=== PATIENT | female | born 1950 | race Two or more races ===

== ENCOUNTER 2020-10-29 13:48 | Inpatient (IN) ==
[2020-10-29] MEDS ORDERED: CARDIZEM INJ 50 MG VIAL ONE (14:23)
[2020-10-29] MEDS ORDERED: CARDIZEM INJ 50 MG VIAL IVP ONE ×2 (14:30→15:00)
[2020-10-29] MEDS ORDERED: CARDIZEM INJ 125 MG VIAL 125 MG in NS 100 ML IV 100 ML IV PRN (14:35)
[2020-10-29] MEDS: CARDIZEM INJ 125 MG VIAL 125 MG in NS 100 ML IV 100 ML IV PRN ×3 (14:38→22:30)
[2020-10-29 14:47] VITALS: BMI 37.4
[2020-10-29 14:52] LABS: BASOPHILS % (AUTO) 0.2 % (0.2-1.0); EOSINOPHILS % (AUTO) 0.4 % (0.9-2.9); HEMATOCRIT 42.1 % (36.0-47.0); HEMOGLOBIN 14.3 g/dL (12.0-16.0); LYMPHOCYTES # (AUTO) 1.8 X10^3/uL (1.3-2.9); LYMPHOCYTES % (AUTO) 18.3 % (21.0-51.0); MEAN CORPUSCULAR HEMOGLOBIN 30.5 pg (27.0-34.0); MEAN CORPUSCULAR HGB CONC 33.8 g/dL (33.0-35.0); MEAN PLATELET VOLUME 8.5 fL (7.4-11.0); MONOCYTES # (AUTO) 0.7 x10^3/uL (0.3-0.8); MONOCYTES % (AUTO) 7.2 % (0.0-13.0); NEUTROPHILS # (AUTO) 7.2 x10^3/uL (2.2-4.8); NEUTROPHILS % (AUTO) 73.9 % (42.0-75.0); PLATELET COUNT 279 X10^3/uL (150.0-450.0); RED BLOOD COUNT 4.68 X10^6/uL (3.5-5.4); RED CELL DISTRIBUTION WIDTH 14.4 % (11.6-16.5); WHITE BLOOD COUNT 9.8 X10^3/uL (3.6-10.0)
--- NOTE | 2020-10-29 15:01 | RAD ---
HISTORYChest pain, shortness of breathSTUDYChest AP portableCOMPARISONNoneFINDINGSThe heart is within normal limits in size. The andrew are normal. The lung costa are clear. No pleural effusions are identified. Bony thorax is unremarkable.IMPRESSIONNo significant abnormality identifiedElectronically signed by: ORALIA STEPHENS (Oct 29, 2020 14:58:54)
[2020-10-29 15:05] LABS: BLOOD UREA NITROGEN 23 mg/dL (7-18); CALCIUM 8.8 mg/dL (8.5-10.1); CARBON DIOXIDE 28.6 mmol/L (21-32); CHLORIDE 108 mmol/L (98-107); CREATININE 0.84 mg/dL (0.55-1.02); SODIUM 143 mmol/L (136-145); TROPONIN I < 0.02 ng/mL (0-1.5); eGFR NON BLACK RACES > 60 (>60)
--- NOTE | 2020-10-29 15:08 | DR.CP ---
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 Mancini. Noted to have tachyarrhythmia today in his office. Patient denies any chest pain, sob, or palpitations. Notes that she just returned from [place] yesterday. Notes that she stopped taking her thyroid medication a few weeks ago as well. Complaint Chief Complaint:: pt has since october 03 developed an increased hr with shortness of breath and tiredness. recently returned as of yesterday from visiting family in [place]. she has had both covid injections. Self Treatment fo Chief Complaint: she had stopped her thyroid meds after the 03 of october thinking that was the cause of her problems. she was to be tested on tsh and restarted. COVID-19 Coronavirus risk:travel/contact w/high risk person: No Has patient experienced Coronavirus symptoms: No Source History Provided: Patient Mode of Arrival Mode of Arrival: Ambulatory Timing Onset of Chief Complaint: 10/29/20 PMH PMH Past Medical History: Yes Past Medical History: Arthritis and Hypothyroidism Past Surgical History: Yes Surgical History: Cholecystectomy, Joint Replacement and Ortho Surgery Family History History of Family Medical Conditions: No Social History Does any household member use tobacco: No Alcohol Use: None Do you use any recreational Drugs:: No Lives With: Family Lives Where: Home Travel Risk Coronavirus risk:travel/contact w/high risk person: No Has patient experienced Coronavirus symptoms: No Infectious screening In the last 2 months have you had wt loss of >10#?: NO Have you had fever, night sweats or hemotysis?: No Have you traveled outside the country in the last 6 months?: No Isolation: Standard ROS Review of Systems Constitutional: See HPI Respiratoy: See HPI Cardiovascular: See HPI All Other Systems: Reviewed and Negative PE Vitals Vitals: Temperature 98.4 F Pulse Rate 130 Respiratory Rate 22 Blood Pressure 123/56 O2 Sat by Pulse Oximetry 99 General Limitations: No Limitations General Appearance: Alert and In No Apparent Distress Head Head Exam: Normal Inspection, Atraumatic and Normocephalic Eyes Eye exam: Normal Appearance and EOMI ENT ENT Exam: Normal Exam Chest Chest Inspection: Normal Inspection and Symmetric Chest Wall Rise Respiratory Respiratory Exam: Normal Lung Sounds Bilat Respiratory Exam: Bilateral: Clear to Auscultation Cardiovascular Cardiovascular Exam: Normal Rhythm and Tachycardia Abdominal Exam Abdominal Exam: Normal Inspection, Normal Bowel Sounds and Soft Extremities Extremities Exam: Normal Inspection Neurologic Neurological Exam: Alert and Oriented X3 Psychiatric Psychiatric Exam: Normal Affect and Normal Mood Skin Skin Exam: Warm, Dry and Intact COURSE Reevaluation 1st: Unchanged (patient given diltiazem 10 mg bolus x 2 and started on cardizem gtt without significant improvement. Dr. Mancini gives orders for digoxin and requests patient admission and he suman see patient in consultation. ) Consultation Consultation Comments: Spoke with Dr. Foster who accepts patient for admission. [facility] Labs Reviewed Laboratory Results Reviewed?: Yes Result Diagrams: 10/29/20 14:10 10/29/20 14:10 Laboratory: WBC 9.8 X10^3/uL (3.6-10.0) 10/29/20 14:10 RBC 4.68 X10^6/uL (3.5-5.4) 10/29/20 14:10 Hgb 14.3 g/dL (12.0-16.0) 10/29/20 14:10 Hct 42.1 % (36.0-47.0) 10/29/20 14:10 MCV 90.0 fL (80.0-100.0) 10/29/20 14:10 MCH 30.5 pg (27.0-34.0) 10/29/20 14:10 MCHC 33.8 g/dL (33.0-35.0) 10/29/20 14:10 RDW 14.4 % (11.6-16.5) 10/29/20 14:10 Plt Count 279 X10^3/uL (150.0-450.0) 10/29/20 14:10 MPV 8.5 fL (7.4-11.0) 10/29/20 14:10 Neut % (Auto) 73.9 % (42.0-75.0) 10/29/20 14:10 Lymph % (Auto) 18.3 % (21.0-51.0) L 10/29/20 14:10 [place] % (Auto) 7.2 % (0.0-13.0) 10/29/20 14:10 Eos % (Auto) 0.4 % (0.9-2.9) L 10/29/20 14:10 Baso % (Auto) 0.2 % (0.2-1.0) 10/29/20 14:10 Neut # (Auto) 7.2 x10^3/uL (2.2-4.8) H 10/29/20 14:10 Lymph # (Auto) 1.8 X10^3/uL (1.3-2.9) 10/29/20 14:10 [place] # (Auto) 0.7 x10^3/uL (0.3-0.8) 10/29/20 14:10 Eos # (Auto) 0.0 x10^3/uL (0.0-0.2) 10/29/20 14:10 Baso # (Auto) 0.0 X10^3/uL (0.0-0.1) 10/29/20 14:10 Absolute Nucleated RBC 0.0 /100WBC 10/29/20 14:10 PT 13.1 SECONDS (11.8-14.3) 10/29/20 14:10 INR Target Range - 10/29/20 14:10 INR 1.05 (0.8-1.3) 10/29/20 14:10 APTT 27.9 SECONDS (22.9-36.5) 10/29/20 14:10 PTT Comment - 10/29/20 14:10 D-Dimer 1.21 ug/ml (0.0-0.57) H* 10/29/20 14:10 Sodium 143 mmol/L (136-145) 10/29/20 14:10 Corrected Sodium TNP 10/29/20 14:10 Potassium 3.8 mmol/L (3.5-5.1) 10/29/20 14:10 Chloride 108 mmol/L (98-107) H 10/29/20 14:10 Carbon Dioxide 28.6 mmol/L (21-32) 10/29/20 14:10 BUN 23 mg/dL (7-18) H 10/29/20 14:10 Creatinine 0.84 mg/dL (0.55-1.02) 10/29/20 14:10 Est GFR (MDRD) Af Amer > 60 (>60) 10/29/20 14:10 Est GFR (MDRD) Non-Af > 60 (>60) 10/29/20 14:10 Glucose 106 mg/dL (65-99) H 10/29/20 14:10 Calcium 8.8 mg/dL (8.5-10.1) 10/29/20 14:10 Corrected Calcium TNP 10/29/20 14:10 Magnesium 2.0 mg/dL (1.7-2.9) 10/29/20 14:10 Total Bilirubin 0.90 mg/dL (0.2-1.0) 10/29/20 14:10 AST 9 Units/L (15-37) L 10/29/20 14:10 ALT 32 Units/L (12-78) 10/29/20 14:10 Alkaline Phosphatase 60 Units/L (46-116) 10/29/20 14:10 Creatine Kinase 40 Units/L (26-192) 10/29/20 14:10 CK-MB (CK-2) < 1.0 ng/mL (0-4.0) 10/29/20 14:10 CK/CKMB % Calc 2.5 % (<4) 10/29/20 14:10 Troponin I < 0.02 ng/mL (0-1.5) 10/29/20 14:10 Total Protein 6.7 g/dL (6.4-8.2) 10/29/20 14:10 Albumin 3.5 g/dL (3.4-5.0) 10/29/20 14:10 Globulin 3.2 g/dL (2.5-4.5) 10/29/20 14:10 Albumin/Globulin Ratio 1.1 Ratio (1.1-2.1) 10/29/20 14:10 TSH 3rd Generation 0.500 uIU/mL (0.358-3.74) 10/29/20 14:10 SARS CoV-2 RNA Rapid RIC Negative (NEGATIVE) 10/29/20 16:13 XRAY X-ray Results: HISTORY DEVELOPED INCREASED HR WITH SOB/ TIREDNESS, RECENTLY OF YESTERDAY VISITING FAMILY IN [place]. SHE HAS HAD BOTH COVID INJECTIONS STUDY CTA CHEST COMPARISON Chest radiograph from 10/29/2020 TECHNIQUE Multiple axial images of the chest were obtained from the thoracic inlet to the upper abdomen after the administration of IV contrast. 3D reconstructions ut ilizing axial MIPS imaging was performed and reviewed. Dose reduction techniques including Automated Exposure Control (AEC) and adjustment of mA and kV were utilized. FINDINGS Pulmonary Arteries:No central or segmental filling defect within the pulmonary arteries. Thoracic Aorta:The thoracic aorta is normal in its contour without evidence for aneurysmal dilatation. Heart: No significant abnormality. Lungs/Pleura: There is volume loss in the lingula and left lower lobe. No suspicious airspace consolidation. No pleural effusion or pneumothorax. Lymph nodes: No significant thoracic lymphadenopathy. Other: None Upper abdomen: Visualized portions of the upper abdomen are unremarkable. Osseous Structures: No acute osseous findings. IMPRESSION No acute findings in the chest. No evidence of pulmonary thromboembolism. Electronically signed by: Ji Yap (Oct 29, 2020 16:52:01) HISTORY Chest pain, shortness of breath STUDY Chest AP portable COMPARISON None FINDINGS The heart is within normal limits in size. The andrew are normal. The lung costa are clear. No pleural effusions are identified. Bony thorax is unremarkable. IMPRESSION No significant abnormality identified Electronically signed by: ORALIA STEPHENS (Oct 29, 2020 14:58:54) Opioid Opioid Risk Tool Age (Edward box if 16-45): No History of Preadolescent Sexual Abuse: No Total: 0 Total Score Risk Category: Low Risk Copyright: Maulik VELASQUEZ predicting aberrant behaviors Diagnosis Discharge Problem: Atrial flutter, Elevated d-dimer
[2020-10-29 15:09] LABS: ALANINE AMINOTRANSFERASE 32 Units/L (12-78); ALBUMIN 3.5 g/dL (3.4-5.0); ALKALINE PHOSPHATASE 60 Units/L (46-116); ASPARTATE AMINO TRANSFERASE 9 Units/L (15-37); CKMB % 2.5 % (<4); CREATINE KINASE 40 Units/L (26-192); CREATINE KINASE MB < 1.0 ng/mL (0-4.0); TOTAL PROTEIN 6.7 g/dL (6.4-8.2)
[2020-10-29] MEDS ORDERED: LANOXIN INJ IVP ONE ×2 (15:36→20:00)
[2020-10-29] MEDS ORDERED: NS 1000 ML 1,000 ML IV ONE (15:40)
[2020-10-29] MEDS ORDERED: LANOXIN INJ ONE (15:42)
[2020-10-29] MEDS ORDERED: NS 1000 ML 1,000 ML ONE (15:45)
[2020-10-29] MEDS ORDERED: ELIQUIS PO STA (16:28)
[2020-10-29] MEDS ORDERED: ELIQUIS ONE (16:38)
--- NOTE | 2020-10-29 16:53 | CT ---
HISTORYDEVELOPED INCREASED HR WITH SOB/ TIREDNESS, RECENTLY OF YESTERDAY VISITING FAMILY IN [place]. SHE HAS HAD BOTH [facility] CHESTCOMPARISONChest radiograph from 10/29/2020TECHNIQUEMultiple axial images of the chest were obtained from the thoracic inlet to the upper abdomen after the administration of IV contrast. 3D reconstructions utilizing axial MIPS imaging was performed and reviewed. Dose reduction techniques including Automated Exposure Control (AEC) and adjustment of mA and kV were utilized.FINDINGSPulmonary Arteries:No central or segmental filling defect within the pulmonary arteries.Thoracic Aorta:The thoracic aorta is normal in its contour without evidence for aneurysmal dilatation.Heart: No significant abnormality.Lungs/Pleura: There is volume loss in the lingula and left lower lobe. No suspicious airspace consolidation. No pleural effusion or pneumothorax.Lymph nodes: No significant thoracic lymphadenopathy.Other: NoneUpper abdomen: Visualized portions of the upper abdomen are unremarkable.Osseous Structures: No acute osseous findings.IMPRESSIONNo acute findings in the chest. No evidence of pulmonary thromboembolism.Electronically signed by: Ji Yap (Oct 29, 2020 16:52:01)
[2020-10-30] MEDS: CARDIZEM INJ 125 MG VIAL 125 MG in NS 100 ML IV 100 ML IV PRN (07:53)
[2020-10-30 08:11] LABS: BASOPHILS % (AUTO) 0.6 % (0.2-1.0); EOSINOPHILS # (AUTO) 0.1 x10^3/uL (0.0-0.2); EOSINOPHILS % (AUTO) 0.8 % (0.9-2.9); HEMOGLOBIN 13.3 g/dL (12.0-16.0); LYMPHOCYTES # (AUTO) 1.4 X10^3/uL (1.3-2.9); LYMPHOCYTES % (AUTO) 17.5 % (21.0-51.0); MEAN CORPUSCULAR HEMOGLOBIN 30.2 pg (27.0-34.0); MEAN CORPUSCULAR HGB CONC 33.2 g/dL (33.0-35.0); MEAN CORPUSCULAR VOLUME 90.8 fL (80.0-100.0); MEAN PLATELET VOLUME 8.6 fL (7.4-11.0); MONOCYTES # (AUTO) 0.7 x10^3/uL (0.3-0.8); MONOCYTES % (AUTO) 8.7 % (0.0-13.0); NEUTROPHILS # (AUTO) 5.9 x10^3/uL (2.2-4.8); NEUTROPHILS % (AUTO) 72.4 % (42.0-75.0); PLATELET COUNT 224 X10^3/uL (150.0-450.0); RED BLOOD COUNT 4.41 X10^6/uL (3.5-5.4); RED CELL DISTRIBUTION WIDTH 14.1 % (11.6-16.5); WHITE BLOOD COUNT 8.1 X10^3/uL (3.6-10.0)
[2020-10-30 08:26] LABS: ALANINE AMINOTRANSFERASE 26 Units/L (12-78); ALBUMIN 2.9 g/dL (3.4-5.0); ALKALINE PHOSPHATASE 55 Units/L (46-116); ASPARTATE AMINO TRANSFERASE 6 Units/L (15-37); BLOOD UREA NITROGEN 21 mg/dL (7-18); CALCIUM 8.4 mg/dL (8.5-10.1); CARBON DIOXIDE 28.8 mmol/L (21-32); CHLORIDE 110 mmol/L (98-107); COR CA(FOR HYPOALB) 9.3 mg/dL (8.5-10.1); COR NA(FOR HYPERGLY) 143 mmol/L (136-145); CREATININE 0.68 mg/dL (0.55-1.02); MAGNESIUM 2.2 mg/dL (1.7-2.9); SODIUM 143 mmol/L (136-145); TOTAL PROTEIN 5.9 g/dL (6.4-8.2); eGFR NON BLACK RACES > 60 (>60)
[2020-10-30] MEDS ORDERED: LANOXIN INJ IVP ONE (09:49)
[2020-10-30] MEDS: ELIQUIS PO SCH ×2 (10:10→20:51)
[2020-10-30] MEDS: CARDIZEM SR 90 MG 12-HR PO SCH ×2 (10:50→20:59)
--- NOTE | 2020-10-30 11:51 | DR.H&P ---
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 Pt only reports having "burning" sensation on chest and some palpitations, but no other symptoms. In the ED, patient was noted tachyarrhythmia appearing to be atrial flutter, she was given diltiazem bolus of 10mg x2, Digoxin 500mcg x1, and started on diltiazem gtt. She also required another Digoxin 250mcg dose later in the evening. Labs/imaging: Wbc 8.1, Hgb 13.3, Plt 224, Na 143, K 4.4, Creatinine 0.68, Glucose 117, Magnesium 2.2, AST 6, ALT 26, ALKP 55, TSH 0.50, D-dimer 1.21 , CXR: No significant abnormality identified, CTA chest: No acute findings in the chest. No evidence of pulmonary thromboembolism. This morning patient is resting comfortably in bed. Repeat Ekg this morning revealing atrial flutter 4:1. She appears to be rate controlled on diltiazem gtt at 15mg/hour. Titrate and wean per protocol. Will consult cardiology to evaluate patient and provide recommendations. Continue Eliquis. Continue to monitor and follow up labs/imaging in the morning. Time spent on documentation, reviewing labs/imaging, and clinical assessment/decision making greater than 75 minutes. 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, Hysterectomy and Mastectomy Social History Does patient currently use any type of tobacco product: No Have you used tobacco products in the last 12 months: No Type of Tobacco Use: None Does any household member use tobacco: No Alcohol Use: None Medications Home Medications: No Known Allergies Allergy (Verified 10/29/20 14:24) CONTINUE taking the following medications amlodipine 5 mg PO DAILY 10/29/20 [History] famotidine 40 mg PO HS 10/29/20 [History] hydrocodone-acetaminophen 1 tab PO DAILY PRN 10/29/20 [History] levothyroxine 100 mcg PO DAILY 10/29/20 [History] zolpidem [Ambien] 10 mg PO HS 10/29/20 [History] Labs Result Diagrams: 10/30/20 06:57 10/30/20 06:57 Labs: Laboratory WBC 8.1 X10^3/uL (3.6-10.0) 10/30/20 06:57 RBC 4.41 X10^6/uL (3.5-5.4) 10/30/20 06:57 Hgb 13.3 g/dL (12.0-16.0) 10/30/20 06:57 Hct 40.0 % (36.0-47.0) 10/30/20 06:57 MCV 90.8 fL (80.0-100.0) 10/30/20 06:57 MCH 30.2 pg (27.0-34.0) 10/30/20 06:57 MCHC 33.2 g/dL (33.0-35.0) 10/30/20 06:57 RDW 14.1 % (11.6-16.5) 10/30/20 06:57 Plt Count 224 X10^3/uL (150.0-450.0) 10/30/20 06:57 MPV 8.6 fL (7.4-11.0) 10/30/20 06:57 Neut % (Auto) 72.4 % (42.0-75.0) 10/30/20 06:57 Lymph % (Auto) 17.5 % (21.0-51.0) L 10/30/20 06:57 [place] % (Auto) 8.7 % (0.0-13.0) 10/30/20 06:57 Eos % (Auto) 0.8 % (0.9-2.9) L 10/30/20 06:57 Baso % (Auto) 0.6 % (0.2-1.0) 10/30/20 06:57 Neut # (Auto) 5.9 x10^3/uL (2.2-4.8) H 10/30/20 06:57 Lymph # (Auto) 1.4 X10^3/uL (1.3-2.9) 10/30/20 06:57 [place] # (Auto) 0.7 x10^3/uL (0.3-0.8) 10/30/20 06:57 Eos # (Auto) 0.1 x10^3/uL (0.0-0.2) 10/30/20 06:57 Baso # (Auto) 0.0 X10^3/uL (0.0-0.1) 10/30/20 06:57 Absolute Nucleated RBC 0.0 /100WBC 10/30/20 06:57 PT 13.1 SECONDS (11.8-14.3) 10/29/20 14:10 INR Target Range - 10/29/20 14:10 INR 1.05 (0.8-1.3) 10/29/20 14:10 APTT 27.9 SECONDS (22.9-36.5) 10/29/20 14:10 PTT Comment - 10/29/20 14:10 D-Dimer 1.21 ug/ml (0.0-0.57) H* 10/29/20 14:10 Sodium 143 mmol/L (136-145) 10/30/20 06:57 Corrected Sodium 143 mmol/L (136-145) 10/30/20 06:57 Potassium 4.4 mmol/L (3.5-5.1) 10/30/20 06:57 Chloride 110 mmol/L (98-107) H 10/30/20 06:57 Carbon Dioxide 28.8 mmol/L (21-32) 10/30/20 06:57 BUN 21 mg/dL (7-18) H 10/30/20 06:57 Creatinine 0.68 mg/dL (0.55-1.02) 10/30/20 06:57 Est GFR (MDRD) Af Amer > 60 (>60) 10/30/20 06:57 Est GFR (MDRD) Non-Af > 60 (>60) 10/30/20 06:57 Glucose 117 mg/dL (65-99) H 10/30/20 06:57 Calcium 8.4 mg/dL (8.5-10.1) L 10/30/20 06:57 Corrected Calcium 9.3 mg/dL (8.5-10.1) 10/30/20 06:57 Magnesium 2.2 mg/dL (1.7-2.9) 10/30/20 06:57 Total Bilirubin 0.50 mg/dL (0.2-1.0) 10/30/20 06:57 AST 6 Units/L (15-37) L 10/30/20 06:57 ALT 26 Units/L (12-78) 10/30/20 06:57 Alkaline Phosphatase 55 Units/L (46-116) 10/30/20 06:57 Creatine Kinase 40 Units/L (26-192) 10/29/20 14:10 CK-MB (CK-2) < 1.0 ng/mL (0-4.0) 10/29/20 14:10 CK/CKMB % Calc 2.5 % (<4) 10/29/20 14:10 Troponin I < 0.02 ng/mL (0-1.5) 10/29/20 14:10 Total Protein 5.9 g/dL (6.4-8.2) L 10/30/20 06:57 Albumin 2.9 g/dL (3.4-5.0) L 10/30/20 06:57 Globulin 3.0 g/dL (2.5-4.5) 10/30/20 06:57 Albumin/Globulin Ratio 1.0 Ratio (1.1-2.1) L 10/30/20 06:57 TSH 3rd Generation 0.500 uIU/mL (0.358-3.74) 10/29/20 14:10 SARS CoV-2 RNA Rapid RIC Negative (NEGATIVE) 10/29/20 16:13 Review of Systems Constitutional: No Symptoms Reported Eyes: No Symptoms Reported ENT: No Symptoms Reported Respiratory: No Symptoms Reported Cardiovascular: Palpitations Gastrointestinal: No Symptoms Reported Genitourinary: No Symptoms Reported Musculoskeletal: No Symptoms Reported Skin: No Symptoms Reported Neurological: No Symptoms Reported Physical Exam Vital Signs: Temperature 98.2 F Pulse Rate [Right] 73 Pulse Rate 74 Respiratory Rate 40 Blood Pressure [Left Arm] 108/67 Blood Pressure 122/68 O2 Sat by Pulse Oximetry 95 Oriented: Normal Eyes: Normal Ear: Normal Nose: Normal Throat: Normal Respiratory: Clear Throughout Cardiovascular: Normal : Normal Auscultation: Bowel Sounds: Normal Palpation: Normal Tenderness: Normal Skin: Normal Musculoskeletal: Normal Psychiatric: Normal Mood Description: Calm and Appropriate Affect: Normal Speech Pattern: Clear and Appropriate Assessment/Plan (1) Atrial flutter: Qualifiers: Atrial flutter type: unspecified Qualified Code(s): I48.92 - Unspecified atrial flutter Status: Acute Plan: Cardizem gtt Cardiology consult, follow up recommendations. Review H&P Reviewed: Yes Patient was examined?: Yes
[2020-10-31] MEDS ORDERED: LANOXIN or DIGITEK PO SCH (09:00)
[2020-10-31] MEDS: CARDIZEM SR 90 MG 12-HR PO SCH (09:35)
[2020-10-31] MEDS: ELIQUIS PO SCH (09:35)
[2020-10-31 11:52] VITALS: BP 150/90
--- NOTE | 2020-10-31 12:32 | W.DIS.FURT ---
Summary of Discharge Discharge Summary of Date Date of Exam: 10/31/20 Admission Date Date of Admission: 10/30/20 Admission Diagnosis Patient Problems (Updated 10/30/20 @ 12:13 by Moose Almeida) Atrial flutter (Acute) I48.92 Elevated d-dimer (Acute) R79.89 Hospital Course: Pt is a 70 year old female past medical history of Hypothyroidism, HTN, Arthritis, and GERD admitted for new onset atrial flutter. Hospital course she was given digoxin and started on diltiazem gtt. She was able to be weaned off drip and rate controlled once started on PO cardizem and digoxin. Cardiology-Dr Mancini was consulted and recommended Cardizem ER 90mg BID, Digoxin 0.125mcg daily, and Eliquis 5mg BID. He will follow up with patient at outpatient clinic in 1 week with plan for nuclear stress test and possible LIBERTAD and cardioversion if patient does not convert on her own. Pt discharged in stable condition, instructed to follow up [facility] pcp in 1 week. Vital Signs: Vital Signs (72 hours) 10/29/20 14:12 10/29/20 14:15 10/29/20 14:27 Temperature Pulse Rate 150 H 150 H 146 H Pulse Rate [Right] Respiratory Rate 38 H 34 H 37 H Blood Pressure 110/84 Blood Pressure [Left Arm] O2 Sat by Pulse Oximetry 98 98 98 10/29/20 14:30 10/29/20 14:40 10/29/20 14:45 Temperature 98.4 F Pulse Rate 148 H 150 H 146 H Pulse Rate [Right] Respiratory Rate 42 H 20 17 Blood Pressure 114/83 109/62 121/76 Blood Pressure [Left Arm] O2 Sat by Pulse Oximetry 99 100 98 10/29/20 15:00 10/29/20 15:15 10/29/20 15:24 Temperature Pulse Rate 149 H 149 H 142 H Pulse Rate [Right] Respiratory Rate 34 H 38 H 18 Blood Pressure 106/70 118/74 Blood Pressure [Left Arm] O2 Sat by Pulse Oximetry 98 97 98 10/29/20 15:30 10/29/20 15:45 10/29/20 15:46 Temperature Pulse Rate 140 H 137 H 137 H Pulse Rate [Right] Respiratory Rate 20 35 H 22 Blood Pressure 109/70 114/65 Blood Pressure [Left Arm] O2 Sat by Pulse Oximetry 98 98 98 10/29/20 16:00 10/29/20 16:02 10/29/20 16:15 Temperature Pulse Rate 133 H 140 H 135 H Pulse Rate [Right] Respiratory Rate 18 Blood Pressure 117/75 116/89 Blood Pressure [Left Arm] O2 Sat by Pulse Oximetry 98 98 10/29/20 16:33 10/29/20 16:45 10/29/20 17:00 Temperature Pulse Rate 131 H 130 H 132 H Pulse Rate [Right] Respiratory Rate 22 22 Blood Pressure 127/69 123/56 Blood Pressure [Left Arm] O2 Sat by Pulse Oximetry 99 100 10/29/20 17:02 10/29/20 17:20 10/29/20 17:30 Temperature 98.8 F Pulse Rate 131 H Pulse Rate [Right] 135 H Respiratory Rate 21 18 Blood Pressure 113/83 Blood Pressure [Left Arm] 142/95 O2 Sat by Pulse Oximetry 99 97 96 10/29/20 18:00 10/29/20 19:00 10/29/20 20:00 Temperature 98 F Pulse Rate Pulse Rate [Right] 142 H 115 H 93 H Respiratory Rate 23 27 H 26 H Blood Pressure Blood Pressure [Left Arm] 139/88 122/70 128/94 O2 Sat by Pulse Oximetry 96 95 95 10/29/20 20:16 10/29/20 21:00 10/29/20 22:00 Temperature Pulse Rate 82 Pulse Rate [Right] 81 93 H Respiratory Rate 22 31 H Blood Pressure Blood Pressure [Left Arm] 137/67 131/78 O2 Sat by Pulse Oximetry 95 97 10/29/20 22:30 10/29/20 22:52 10/29/20 23:00 Temperature Pulse Rate 84 84 74 Pulse Rate [Right] 74 Respiratory Rate 26 H 31 H 31 H Blood Pressure Blood Pressure [Left Arm] 119/61 O2 Sat by Pulse Oximetry 94 L 95 10/29/20 23:01 10/29/20 23:15 10/29/20 23:30 Temperature Pulse Rate 74 73 74 Pulse Rate [Right] Respiratory Rate 32 H 39 H 23 Blood Pressure 119/61 Blood Pressure [Left Arm] O2 Sat by Pulse Oximetry 94 L 95 93 L 10/29/20 23:45 10/30/20 00:00 10/30/20 00:15 Temperature 98.2 F Pulse Rate 74 74 74 Pulse Rate [Right] 74 Respiratory Rate 23 25 H 23 Blood Pressure 115/67 Blood Pressure [Left Arm] 115/67 O2 Sat by Pulse Oximetry 92 L 92 L 91 L 10/30/20 00:30 10/30/20 00:45 10/30/20 01:00 Temperature Pulse Rate 74 74 74 Pulse Rate [Right] 92 H Respiratory Rate 23 22 20 Blood Pressure 122/68 Blood Pressure [Left Arm] 122/68 O2 Sat by Pulse Oximetry 91 L 91 L 90 L 10/30/20 01:15 10/30/20 01:30 10/30/20 01:45 Temperature Pulse Rate 74 73 73 Pulse Rate [Right] Respiratory Rate 25 H 21 22 Blood Pressure Blood Pressure [Left Arm] O2 Sat by Pulse Oximetry 90 L 93 L 92 L 10/30/20 02:00 10/30/20 02:15 10/30/20 02:30 Temperature Pulse Rate 74 74 73 Pulse Rate [Right] 74 Respiratory Rate 22 22 21 Blood Pressure 120/70 Blood Pressure [Left Arm] 138/81 O2 Sat by Pulse Oximetry 92 L 91 L 91 L 10/30/20 02:45 10/30/20 03:00 10/30/20 03:15 Temperature Pulse Rate 73 74 74 Pulse Rate [Right] 74 Respiratory Rate 22 19 21 Blood Pressure 138/81 Blood Pressure [Left Arm] 124/71 O2 Sat by Pulse Oximetry 92 L 93 L 92 L 10/30/20 03:30 10/30/20 03:45 10/30/20 04:00 Temperature 98.2 F Pulse Rate 73 78 76 Pulse Rate [Right] 74 Respiratory Rate 20 21 36 H Blood Pressure Blood Pressure [Left Arm] 124/71 O2 Sat by Pulse Oximetry 92 L 90 L 90 L 10/30/20 04:09 10/30/20 04:15 10/30/20 04:30 Temperature Pulse Rate 73 73 72 Pulse Rate [Right] Respiratory Rate 20 23 19 Blood Pressure 124/71 Blood Pressure [Left Arm] O2 Sat by Pulse Oximetry 95 93 L 92 L 10/30/20 04:45 10/30/20 05:00 10/30/20 05:15 Temperature Pulse Rate 72 72 72 Pulse Rate [Right] Respiratory Rate 19 19 19 Blood Pressure Blood Pressure [Left Arm] O2 Sat by Pulse Oximetry 92 L 93 L 95 10/30/20 05:30 10/30/20 05:45 10/30/20 06:00 Temperature Pulse Rate 73 73 73 Pulse Rate [Right] 73 Respiratory Rate 20 18 20 Blood Pressure Blood Pressure [Left Arm] 108/67 O2 Sat by Pulse Oximetry 94 L 93 L 93 L 10/30/20 06:15 10/30/20 06:17 10/30/20 06:30 Temperature Pulse Rate 73 74 73 Pulse Rate [Right] Respiratory Rate 21 21 20 Blood Pressure 108/67 Blood Pressure [Left Arm] O2 Sat by Pulse Oximetry 91 L 96 95 10/30/20 06:45 10/30/20 07:00 10/30/20 07:14 Temperature Pulse Rate 73 74 74 Pulse Rate [Right] Respiratory Rate 24 30 H 28 H Blood Pressure 118/65 Blood Pressure [Left Arm] O2 Sat by Pulse Oximetry 94 L 95 95 10/30/20 07:15 10/30/20 07:30 10/30/20 07:45 Temperature 97.9 F Pulse Rate 74 73 72 Pulse Rate [Right] Respiratory Rate 35 H 34 H 41 H Blood Pressure Blood Pressure [Left Arm] O2 Sat by Pulse Oximetry 95 94 L 97 10/30/20 08:08 10/30/20 08:15 10/30/20 08:30 Temperature Pulse Rate 85 75 73 Pulse Rate [Right] Respiratory Rate 19 38 H 46 H Blood Pressure Blood Pressure [Left Arm] O2 Sat by Pulse Oximetry 96 97 10/30/20 08:43 10/30/20 08:45 10/30/20 09:00 Temperature Pulse Rate 74 73 73 Pulse Rate [Right] Respiratory Rate 35 H 29 H 33 H Blood Pressure 112/66 117/67 Blood Pressure [Left Arm] O2 Sat by Pulse Oximetry 96 94 L 96 10/30/20 09:15 10/30/20 09:30 10/30/20 09:45 Temperature Pulse Rate 74 74 73 Pulse Rate [Right] Respiratory Rate 47 H 33 H 42 H Blood Pressure Blood Pressure [Left Arm] O2 Sat by Pulse Oximetry 95 96 93 L 10/30/20 10:00 10/30/20 10:10 10/30/20 10:15 Temperature Pulse Rate 73 73 73 Pulse Rate [Right] Respiratory Rate 36 H 40 H Blood Pressure 122/68 Blood Pressure [Left Arm] O2 Sat by Pulse Oximetry 93 L 94 L 10/30/20 10:30 10/30/20 10:45 10/30/20 11:00 Temperature Pulse Rate 74 74 74 Pulse Rate [Right] Respiratory Rate 40 H 40 H 37 H Blood Pressure 124/75 Blood Pressure [Left Arm] O2 Sat by Pulse Oximetry 95 95 95 10/30/20 11:15 10/30/20 11:30 10/30/20 11:45 Temperature Pulse Rate 79 113 H 74 Pulse Rate [Right] Respiratory Rate 30 H 33 H 24 Blood Pressure Blood Pressure [Left Arm] O2 Sat by Pulse Oximetry 92 L 92 L 97 10/30/20 12:00 10/30/20 12:01 10/30/20 12:15 Temperature 97.7 F Pulse Rate 92 H 91 H 79 Pulse Rate [Right] Respiratory Rate 34 H 34 H 26 H Blood Pressure 129/79 Blood Pressure [Left Arm] O2 Sat by Pulse Oximetry 96 97 96 10/30/20 12:30 10/30/20 12:45 10/30/20 13:00 Temperature Pulse Rate 77 82 77 Pulse Rate [Right] Respiratory Rate 25 H 24 29 H Blood Pressure 125/65 Blood Pressure [Left Arm] O2 Sat by Pulse Oximetry 97 97 98 10/30/20 13:15 10/30/20 13:30 10/30/20 13:45 Temperature Pulse Rate 78 93 H 80 Pulse Rate [Right] Respiratory Rate 52 H 34 H 30 H Blood Pressure Blood Pressure [Left Arm] O2 Sat by Pulse Oximetry 97 96 98 10/30/20 14:00 10/30/20 14:15 10/30/20 14:30 Temperature Pulse Rate 77 93 H 75 Pulse Rate [Right] Respiratory Rate 25 H 34 H 26 H Blood Pressure 115/67 Blood Pressure [Left Arm] O2 Sat by Pulse Oximetry 96 96 96 10/30/20 14:46 10/30/20 15:00 10/30/20 15:15 Temperature Pulse Rate 75 74 76 Pulse Rate [Right] Respiratory Rate 26 H 25 H 26 H Blood Pressure 112/71 Blood Pressure [Left Arm] O2 Sat by Pulse Oximetry 97 97 96 10/30/20 15:30 10/30/20 15:45 10/30/20 16:02 Temperature Pulse Rate 75 88 Pulse Rate [Right] Respiratory Rate 25 H 29 H Blood Pressure Blood Pressure [Left Arm] O2 Sat by Pulse Oximetry 97 95 96 10/30/20 16:15 10/30/20 16:30 10/30/20 16:42 Temperature Pulse Rate 81 76 84 Pulse Rate [Right] Respiratory Rate 23 21 28 H Blood Pressure 119/72 Blood Pressure [Left Arm] O2 Sat by Pulse Oximetry 98 97 98 10/30/20 16:45 10/30/20 17:00 10/30/20 17:15 Temperature Pulse Rate 81 83 131 H Pulse Rate [Right] Respiratory Rate 29 H 32 H 31 H Blood Pressure 130/81 Blood Pressure [Left Arm] O2 Sat by Pulse Oximetry 98 97 97 10/30/20 17:30 10/30/20 17:45 10/30/20 18:00 Temperature Pulse Rate 128 H 100 H 129 H Pulse Rate [Right] Respiratory Rate 40 H 26 H 35 H Blood Pressure 131/89 Blood Pressure [Left Arm] O2 Sat by Pulse Oximetry 97 97 97 10/30/20 19:00 10/30/20 20:00 10/30/20 21:00 Temperature 97.9 F Pulse Rate 134 H 128 H 133 H Pulse Rate [Right] Respiratory Rate 27 H 29 H 31 H Blood Pressure 145/67 134/93 152/99 Blood Pressure [Left Arm] O2 Sat by Pulse Oximetry 96 97 97 10/30/20 21:15 10/30/20 21:30 10/30/20 21:45 Temperature Pulse Rate 129 H 133 H 137 H Pulse Rate [Right] Respiratory Rate 26 H 24 19 Blood Pressure Blood Pressure [Left Arm] O2 Sat by Pulse Oximetry 96 97 98 10/30/20 22:00 10/30/20 22:15 10/30/20 22:30 Temperature Pulse Rate 134 H 132 H 133 H Pulse Rate [Right] Respiratory Rate 32 H 35 H 44 H Blood Pressure 139/96 Blood Pressure [Left Arm] O2 Sat by Pulse Oximetry 97 97 97 10/30/20 22:49 10/30/20 23:00 10/30/20 23:15 Temperature Pulse Rate 149 H 143 H 132 H Pulse Rate [Right] Respiratory Rate 30 H 25 H 20 Blood Pressure 123/90 Blood Pressure [Left Arm] O2 Sat by Pulse Oximetry 96 97 10/30/20 23:30 10/30/20 23:45 10/31/20 00:00 Temperature 97.8 F Pulse Rate 132 H 129 H 100 H Pulse Rate [Right] Respiratory Rate 23 22 21 Blood Pressure 130/61 Blood Pressure [Left Arm] O2 Sat by Pulse Oximetry 97 94 L 97 10/31/20 00:15 10/31/20 00:30 10/31/20 00:45 Temperature Pulse Rate 114 H 100 H 92 H Pulse Rate [Right] Respiratory Rate 24 19 19 Blood Pressure Blood Pressure [Left Arm] O2 Sat by Pulse Oximetry 95 96 97 10/31/20 01:00 10/31/20 01:15 10/31/20 01:30 Temperature Pulse Rate 100 H 101 H 100 H Pulse Rate [Right] Respiratory Rate 20 20 21 Blood Pressure 132/64 Blood Pressure [Left Arm] O2 Sat by Pulse Oximetry 97 97 96 10/31/20 01:45 10/31/20 02:00 10/31/20 02:15 Temperature Pulse Rate 99 H 116 H 80 Pulse Rate [Right] Respiratory Rate 24 24 21 Blood Pressure 122/58 Blood Pressure [Left Arm] O2 Sat by Pulse Oximetry 95 97 96 10/31/20 02:30 10/31/20 02:45 10/31/20 03:00 Temperature Pulse Rate 77 136 H 78 Pulse Rate [Right] Respiratory Rate 19 54 H 20 Blood Pressure 131/67 Blood Pressure [Left Arm] O2 Sat by Pulse Oximetry 97 97 10/31/20 03:15 10/31/20 03:30 10/31/20 03:45 Temperature Pulse Rate 77 77 77 Pulse Rate [Right] Respiratory Rate 20 21 20 Blood Pressure Blood Pressure [Left Arm] O2 Sat by Pulse Oximetry 96 97 97 10/31/20 04:00 10/31/20 04:15 10/31/20 04:30 Temperature 97.7 F Pulse Rate 99 H 78 79 Pulse Rate [Right] Respiratory Rate 26 H 20 19 Blood Pressure 137/66 Blood Pressure [Left Arm] O2 Sat by Pulse Oximetry 96 97 96 10/31/20 04:45 10/31/20 05:00 10/31/20 05:15 Temperature Pulse Rate 97 H 105 H 98 H Pulse Rate [Right] Respiratory Rate 20 19 20 Blood Pressure 127/77 Blood Pressure [Left Arm] O2 Sat by Pulse Oximetry 96 98 98 10/31/20 05:30 10/31/20 05:45 10/31/20 06:00 Temperature Pulse Rate 81 80 81 Pulse Rate [Right] Respiratory Rate 21 21 19 Blood Pressure 124/72 Blood Pressure [Left Arm] O2 Sat by Pulse Oximetry 96 96 97 04/08/21 06:15 10/31/20 06:30 10/31/20 06:45 Temperature Pulse Rate 81 91 H 139 H Pulse Rate [Right] Respiratory Rate 21 21 25 H Blood Pressure Blood Pressure [Left Arm] O2 Sat by Pulse Oximetry 96 97 94 L 10/31/20 06:59 10/31/20 07:00 10/31/20 07:15 Temperature Pulse Rate 113 H 113 H 97 H Pulse Rate [Right] Respiratory Rate 20 19 19 Blood Pressure 132/77 Blood Pressure [Left Arm] O2 Sat by Pulse Oximetry 97 97 96 10/31/20 07:30 10/31/20 07:45 10/31/20 08:00 Temperature 98.3 F Pulse Rate 130 H 137 H 133 H Pulse Rate [Right] Respiratory Rate 32 H 41 H 26 H Blood Pressure 104/79 Blood Pressure [Left Arm] O2 Sat by Pulse Oximetry 94 L 96 97 10/31/20 08:15 10/31/20 08:31 10/31/20 08:45 Temperature Pulse Rate 128 H 149 H 139 H Pulse Rate [Right] Respiratory Rate 28 H 20 26 H Blood Pressure Blood Pressure [Left Arm] O2 Sat by Pulse Oximetry 97 94 L 98 10/31/20 09:00 10/31/20 09:15 10/31/20 09:30 Temperature Pulse Rate 132 H 134 H 128 H Pulse Rate [Right] Respiratory Rate 21 24 22 Blood Pressure 119/79 Blood Pressure [Left Arm] O2 Sat by Pulse Oximetry 97 97 97 10/31/20 09:45 10/31/20 10:00 10/31/20 10:15 Temperature Pulse Rate 134 H 132 H 141 H Pulse Rate [Right] Respiratory Rate 24 21 28 H Blood Pressure 150/90 Blood Pressure [Left Arm] O2 Sat by Pulse Oximetry 98 97 97 10/31/20 10:30 Temperature Pulse Rate 144 H Pulse Rate [Right] Respiratory Rate 45 H Blood Pressure Blood Pressure [Left Arm] O2 Sat by Pulse Oximetry 97 Labs: Laboratory Last Values WBC 8.1 X10^3/uL (3.6-10.0) 10/30/20 06:57 RBC 4.41 X10^6/uL (3.5-5.4) 10/30/20 06:57 Hgb 13.3 g/dL (12.0-16.0) 10/30/20 06:57 Hct 40.0 % (36.0-47.0) 10/30/20 06:57 MCV 90.8 fL (80.0-100.0) 10/30/20 06:57 MCH 30.2 pg (27.0-34.0) 10/30/20 06:57 MCHC 33.2 g/dL (33.0-35.0) 10/30/20 06:57 RDW 14.1 % (11.6-16.5) 10/30/20 06:57 Plt Count 224 X10^3/uL (150.0-450.0) 10/30/20 06:57 MPV 8.6 fL (7.4-11.0) 10/30/20 06:57 Neut % (Auto) 72.4 % (42.0-75.0) 10/30/20 06:57 Lymph % (Auto) 17.5 % (21.0-51.0) L 10/30/20 06:57 [place] % (Auto) 8.7 % (0.0-13.0) 10/30/20 06:57 Eos % (Auto) 0.8 % (0.9-2.9) L 10/30/20 06:57 Baso % (Auto) 0.6 % (0.2-1.0) 10/30/20 06:57 Neut # (Auto) 5.9 x10^3/uL (2.2-4.8) H 10/30/20 06:57 Lymph # (Auto) 1.4 X10^3/uL (1.3-2.9) 10/30/20 06:57 [place] # (Auto) 0.7 x10^3/uL (0.3-0.8) 10/30/20 06:57 Eos # (Auto) 0.1 x10^3/uL (0.0-0.2) 10/30/20 06:57 Baso # (Auto) 0.0 X10^3/uL (0.0-0.1) 10/30/20 06:57 Absolute Nucleated RBC 0.0 /100WBC 10/30/20 06:57 PT 13.1 SECONDS (11.8-14.3) 10/29/20 14:10 INR Target Range - 10/29/20 14:10 INR 1.05 (0.8-1.3) 10/29/20 14:10 APTT 27.9 SECONDS (22.9-36.5) 10/29/20 14:10 PTT Comment - 10/29/20 14:10 D-Dimer 1.21 ug/ml (0.0-0.57) H* 10/29/20 14:10 Sodium 143 mmol/L (136-145) 10/30/20 06:57 Corrected Sodium 143 mmol/L (136-145) 10/30/20 06:57 Potassium 4.4 mmol/L (3.5-5.1) 10/30/20 06:57 Chloride 110 mmol/L (98-107) H 10/30/20 06:57 Carbon Dioxide 28.8 mmol/L (21-32) 10/30/20 06:57 BUN 21 mg/dL (7-18) H 10/30/20 06:57 Creatinine 0.68 mg/dL (0.55-1.02) 10/30/20 06:57 Est GFR (MDRD) Af Amer > 60 (>60) 10/30/20 06:57 Est GFR (MDRD) Non-Af > 60 (>60) 10/30/20 06:57 Glucose 117 mg/dL (65-99) H 10/30/20 06:57 Calcium 8.4 mg/dL (8.5-10.1) L 10/30/20 06:57 Corrected Calcium 9.3 mg/dL (8.5-10.1) 10/30/20 06:57 Magnesium 2.2 mg/dL (1.7-2.9) 10/30/20 06:57 Total Bilirubin 0.50 mg/dL (0.2-1.0) 10/30/20 06:57 AST 6 Units/L (15-37) L 10/30/20 06:57 ALT 26 Units/L (12-78) 10/30/20 06:57 Alkaline Phosphatase 55 Units/L (46-116) 10/30/20 06:57 Creatine Kinase 40 Units/L (26-192) 10/29/20 14:10 CK-MB (CK-2) < 1.0 ng/mL (0-4.0) 10/29/20 14:10 CK/CKMB % Calc 2.5 % (<4) 10/29/20 14:10 Troponin I < 0.02 ng/mL (0-1.5) 10/29/20 14:10 Total Protein 5.9 g/dL (6.4-8.2) L 10/30/20 06:57 Albumin 2.9 g/dL (3.4-5.0) L 10/30/20 06:57 Globulin 3.0 g/dL (2.5-4.5) 10/30/20 06:57 Albumin/Globulin Ratio 1.0 Ratio (1.1-2.1) L 10/30/20 06:57 TSH 3rd Generation 0.500 uIU/mL (0.358-3.74) 10/29/20 14:10 Digoxin 0.72 ng/mL (0.9-2) L 10/31/20 08:50 SARS CoV-2 RNA Rapid RIC Negative (NEGATIVE) 10/29/20 16:13 Reason For Visit: ATRIAL FLUTTER WITH RAPID RATE,>D-DIMER Discharge Date Discharge Date: 10/31/20 Discharge Diagnosis All Active Problems (Updated 10/30/20 @ 12:13 by Moose Almeida) Atrial flutter (Acute) Elevated d-dimer (Acute) Plan of Treatment: Continue with present treatment and follow up plan. Pt is to keep follow up appointment as instructed and take medications as ordered. Discharge Medications Discharge Medications: No Known Allergies Allergy (Verified 10/29/20 14:24) CONTINUE taking the following medications famotidine 40 mg PO HS 10/29/20 [History] hydrocodone-acetaminophen 1 tab PO DAILY PRN 10/29/20 [History] levothyroxine 100 mcg PO DAILY 10/29/20 [History] zolpidem [Ambien] 10 mg PO HS 10/29/20 [History] New Prescriptions apixaban [Eliquis] 5 mg PO BID 30 Days #60 tab 10/31/20 [Rx] digoxin [Digitek] 0.125 mg PO DAILY 30 Days #30 tab 10/31/20 [Rx] diltiazem HCl 90 mg PO BID 30 Days #60 cap 10/31/20 [Rx] Follow up and Referral Follow Up: 1 Week Discharge Disposition Assessment: Stable no acute distress noted on discharge. Discharge Disposition: Home Discharge Condition: Stable Discharge Plan Discharge Plan Hospital Course: Pt is a 70 year old female past medical history of Hypothyroidism, HTN, Arthritis, and GERD admitted for new onset atrial flutter. Hospital course she was given digoxin and started on diltiazem gtt. She was able to be weaned off drip and rate controlled once started on PO cardizem and digoxin. Cardiology-Dr Mancini was consulted and recommended Cardizem ER 90mg BID, Digoxin 0.125mcg daily, and Eliquis 5mg BID. He will follow up with patient at outpatient clinic in 1 week with plan for nuclear stress test and possible LIBERTAD and cardioversion if patient does not convert on her own. Pt discharged in stable condition, instructed to follow up [facility] pcp in 1 week. Patient Disposition: 01 HOME, SELF-CARE Condition: Stable Health Concerns: Post Hospitalization: new medications and changes needed to prevent readmission or further decline. Pt educated and given instructions on all concerns. Care Plan Goals: Problem: Chest Pain Goals: Chest pain improving/resolved Instructions: Contact your physician or report to the closest Emergency Department if your chest pain returns or worsens. Take medications as prescribed. Follow up with your primary doctor as instructed. Plan of Treatment: Continue with present treatment and follow up plan. Pt is to keep follow up appointment as instructed and take medications as ordered. Assessment: Stable no acute distress noted on discharge. Prescriptions: New diltiazem HCl 90 mg Capsule,Extended Release 12 Hr 90 mg PO BID 30 Days Qty: 60 RF: 0 Eliquis 5 mg Tablet 5 mg PO BID 30 Days Qty: 60 RF: 0 digoxin [Digitek] 125 mcg (0.125 mg) Tablet 0.125 mg PO DAILY 30 Days Qty: 30 RF: 0 Continued hydrocodone-acetaminophen 5-325 mg tablet 1 tab PO DAILY PRN (Reason: Pain) RF: 0 famotidine 40 mg tablet 40 mg PO HS RF: 0 levothyroxine 100 mcg tablet 100 mcg PO DAILY RF: 0 zolpidem [Ambien] 10 mg Tablet 10 mg PO HS RF: 0 Discontinued amlodipine 5 mg tablet 5 mg PO DAILY RF: 0 Follow ups/Referrals Follow ups/Referrals: Chas Mancini [Primary Care Provider] - 11/19/20 1:20 pm (Notify Dr. Mancini's office if you need to be seen sooner.) Instructions Instructions: Heart Disease Prevention, Fatigue, Hand Washing, [id number], Palpitations, [id number], Atrial Fibrillation, [id number] Stand Alone Forms: Excuse From Work or School, Precautions for COVID19, Patient Portal, Social Distancing
== END 2020-10-31 11:20 | disposition home or self-care (01) | DRG 310 ==
LOC: ER 13:48 → ICU 16:55
PROVIDERS: ADMIT Internal Medicine; ATTEND Internal Medicine
DX: R94.31 Abnormal electrocardiogram [ECG] [EKG]; K21.9 Gastro-esophageal reflux disease without esophagitis; Z20.822 Contact with and (suspected) exposure to COVID-19; I48.92 Unspecified atrial flutter; R06.02 Shortness of breath; E03.8 Other specified hypothyroidism; R79.89 Other specified abnormal findings of blood chemistry; E66.8 Other obesity; R07.89 Other chest pain; I10 Essential (primary) hypertension

== ENCOUNTER 2020-11-04 13:48 | Inpatient (IN) ==
[2020-11-04] MEDS ORDERED: CARDIZEM INJ 125 MG VIAL ONE (15:03)
[2020-11-04] MEDS ORDERED: NS 100 ML IV 100 ML IV ONE ×2 (15:04→16:16)
[2020-11-04 15:08] LABS: BILIRUBIN,URINE NEGATIVE (NEGATIVE); BLOOD/HEMOGLOBIN,URINE 5+ (NEGATIVE); GLUCOSE, URINE NEGATIVE (NEGATIVE); KETONES,URINE NEGATIVE (NEGATIVE); LEUKOCYTE ESTERASE ,URINE 2+ (NEGATIVE); NITRITES,URINE NEGATIVE (NEGATIVE); PROTEIN,URINE 3+ (NEGATIVE); UROBILINOGEN,URINE NORMAL (NORMAL)
[2020-11-04 15:08] LABS: BASOPHILS # (AUTO) 0.1 X10^3/uL (0.0-0.1); BASOPHILS % (AUTO) 0.6 % (0.2-1.0); EOSINOPHILS % (AUTO) 0.4 % (0.9-2.9); HEMOGLOBIN 14.2 g/dL (12.0-16.0); LYMPHOCYTES % (AUTO) 16.7 % (21.0-51.0); MEAN CORPUSCULAR HEMOGLOBIN 30.6 pg (27.0-34.0); MEAN CORPUSCULAR HGB CONC 34.6 g/dL (33.0-35.0); MEAN CORPUSCULAR VOLUME 88.6 fL (80.0-100.0); MEAN PLATELET VOLUME 7.6 fL (7.4-11.0); MONOCYTES % (AUTO) 8.4 % (0.0-13.0); NEUTROPHILS # (AUTO) 9.1 x10^3/uL (2.2-4.8); NEUTROPHILS % (AUTO) 73.9 % (42.0-75.0); PLATELET COUNT 285 X10^3/uL (150.0-450.0); RED BLOOD COUNT 4.63 X10^6/uL (3.5-5.4); RED CELL DISTRIBUTION WIDTH 14.4 % (11.6-16.5); WHITE BLOOD COUNT 12.3 X10^3/uL (3.6-10.0)
[2020-11-04] MEDS: CARDIZEM INJ 125 MG VIAL 125 MG in NS 100 ML IV 100 ML IV PRN (15:14)
[2020-11-04 15:15] LABS: APPEARANCE,URINE CLOUDY (CLEAR); BACTERIA,URINE 1+ /HPF (NEGATIVE); COLOR,URINE BROWN (YELLOW); RBC,URINE 20-30 /HPF (0-3); SQUAMOUS EPITHELIAL CELL,UR FEW /HPF (NEGATIVE)
[2020-11-04 15:23] LABS: BLOOD UREA NITROGEN 20 mg/dL (7-18); CALCIUM 8.6 mg/dL (8.5-10.1); CARBON DIOXIDE 27.4 mmol/L (21-32); CHLORIDE 107 mmol/L (98-107); COR NA(FOR HYPERGLY) 143 mmol/L (136-145); CREATININE 0.91 mg/dL (0.55-1.02); SODIUM 143 mmol/L (136-145); TROPONIN I < 0.02 ng/mL (0-1.5); eGFR NON BLACK RACES > 60 (>60)
[2020-11-04 15:27] LABS: ALANINE AMINOTRANSFERASE 26 Units/L (12-78); ALBUMIN 3.3 g/dL (3.4-5.0); ALKALINE PHOSPHATASE 64 Units/L (46-116); ASPARTATE AMINO TRANSFERASE 11 Units/L (15-37); CKMB % 3.1 % (<4); COR CA(FOR HYPOALB) 9.2 mg/dL (8.5-10.1); CREATINE KINASE 32 Units/L (26-192); CREATINE KINASE MB < 1.0 ng/mL (0-4.0); MAGNESIUM 1.7 mg/dL (1.7-2.9); TOTAL PROTEIN 6.5 g/dL (6.4-8.2)
[2020-11-04] MEDS ORDERED: CARDIZEM INJ 50 MG VIAL ONE (15:33)
[2020-11-04] MEDS ORDERED: CARDIZEM INJ 50 MG VIAL IVP ONE (15:35)
--- NOTE | 2020-11-04 15:38 | RAD ---
HISTORYCHEST PAIN, ELEVATED HRSTUDYCHEST, 1 VIEWCOMPARISONPortable chest October 29, 2020.FINDINGSThe trachea is midline. The cardiac silhouette is unremarkable . The lungs are clear without focal infiltrate or effusion. The bony thorax is unremarkable.IMPRESSIONNo acute cardiopulmonary disease and no change from recent study October 29, 2020..Electronically signed by: BRONSON BARTON (Nov 04, 2020 15:36:00)
[2020-11-04] MEDS ORDERED: LANOXIN INJ IVP SCH (17:00)
[2020-11-04] MEDS ORDERED: ROCEPHIN VIAL 1 GRAM IV ONE (17:27)
[2020-11-04] MEDS ORDERED: NS 1000 ML 1,000 ML ONE (17:42)
[2020-11-04] MEDS ORDERED: ROCEPHIN 1 GRAM IV PREMIX 1 G/50 ML IV.SOLN. IV ONE (17:43)
--- NOTE | 2020-11-04 17:48 | CT ---
HISTORYHEMATURIA, LT FLANK PAINSTUDYABDOMEN/PELVIS WITH CONCOMPARISONCTA chest, October 29, 2020TECHNIQUEAxial CT images of the abdomen and pelvis were obtained after the administration of IV contrast and reformatted into coronal and sagittal planes for further evaluation.Radiation dose: 1110.50 mGy-cm total DLPFINDINGSLung bases are clear.Trace pericardial effusion.Stomach appears normal.Indeterminate 1.6 cm nodule in the left adrenal gland.Liver, spleen, pancreas and right adrenal gland are unremarkable.Status post cholecystectomy.Bilateral renal cysts.6 mm nonobstructing lower pole right nephrolith.Mild wall thickening of the right renal pelvis.Otherwise, homogeneous enhancement of the kidneys with normal appearing ureters.Unremarkable appearance of the urinary bladder.Imaged reproductive structures are unremarkable.Unremarkable appearance of the large and small bowel.No evidence of acute appendicitis.No pneumoperitoneum.No significant fluid collection.No adenopathy.No acute osseous abnormality.Mild multilevel degenerative disc disease in the mid thoracic spine.Vertebral body heights maintained with normal alignment.IMPRESSION1. Mild thickening of the wall of the right renal pelvis could represent the sequela of an ascending urinary tract infection.2. 6 mm nonobstructing right nephrolith.3. 1.6 cm left adrenal adenoma; characterized on the comparison CTA exam.Electronically signed by: Alfredo Moreno (Nov 04, 2020 17:45:42)
[2020-11-04] MEDS ORDERED: NS 1000 ML 1,000 ML IV ONE (17:58)
[2020-11-04] MEDS: CARDIZEM CD 180 MG 24-HR PO SCH (17:58)
[2020-11-04] MEDS ORDERED: MILK OF MAGNESIA PO PRN (19:19)
[2020-11-04] MEDS ORDERED: COLACE CAP 100 MG PO PRN (19:19)
[2020-11-04] MEDS: MILK OF MAGNESIA PO PRN (20:00)
[2020-11-04] MEDS: COLACE CAP 100 MG PO PRN (20:00)
[2020-11-04 20:59] VITALS: BMI 39.4
[2020-11-04 22:14] LABS: CKMB % 3.9 % (<4); CREATINE KINASE 26 Units/L (26-192); CREATINE KINASE MB < 1.0 ng/mL (0-4.0); TROPONIN I < 0.02 ng/mL (0-1.5)
[2020-11-05] MEDS: CARDIZEM INJ 125 MG VIAL 125 MG in NS 100 ML IV 100 ML IV PRN (01:30)
[2020-11-05 04:52] LABS: BASOPHILS # (AUTO) 0.1 X10^3/uL (0.0-0.1); BASOPHILS % (AUTO) 0.4 % (0.2-1.0); EOSINOPHILS # (AUTO) 0.1 x10^3/uL (0.0-0.2); EOSINOPHILS % (AUTO) 0.6 % (0.9-2.9); HEMATOCRIT 41.4 % (36.0-47.0); HEMOGLOBIN 13.8 g/dL (12.0-16.0); LYMPHOCYTES # (AUTO) 2.1 X10^3/uL (1.3-2.9); LYMPHOCYTES % (AUTO) 17.4 % (21.0-51.0); MEAN CORPUSCULAR HEMOGLOBIN 29.7 pg (27.0-34.0); MEAN CORPUSCULAR HGB CONC 33.2 g/dL (33.0-35.0); MEAN CORPUSCULAR VOLUME 89.4 fL (80.0-100.0); NEUTROPHILS % (AUTO) 73.6 % (42.0-75.0); PLATELET COUNT 297 X10^3/uL (150.0-450.0); RED BLOOD COUNT 4.64 X10^6/uL (3.5-5.4); RED CELL DISTRIBUTION WIDTH 14.6 % (11.6-16.5); WHITE BLOOD COUNT 12.3 X10^3/uL (3.6-10.0)
[2020-11-05 05:11] LABS: ALANINE AMINOTRANSFERASE 26 Units/L (12-78); ALKALINE PHOSPHATASE 71 Units/L (46-116); ASPARTATE AMINO TRANSFERASE 11 Units/L (15-37); BLOOD UREA NITROGEN 23 mg/dL (7-18); CALCIUM 8.9 mg/dL (8.5-10.1); CARBON DIOXIDE 27.2 mmol/L (21-32); CHLORIDE 109 mmol/L (98-107); CHOL/HDL RATIO 3.3 (0.0-5.0); CHOLESTEROL 177 mg/dL (0-200); CKMB % 5.3 % (<4); COR CA(FOR HYPOALB) 9.7 mg/dL (8.5-10.1); COR NA(FOR HYPERGLY) 145 mmol/L (136-145); CREATINE KINASE 19 Units/L (26-192); CREATINE KINASE MB < 1.0 ng/mL (0-4.0); CREATININE 0.74 mg/dL (0.55-1.02); HDL CHOLESTEROL 54 mg/dL (40-60); SODIUM 144 mmol/L (136-145); TOTAL PROTEIN 6.3 g/dL (6.4-8.2); TRIGLYCERIDES 105 mg/dL (0-150); TROPONIN I < 0.02 ng/mL (0-1.5); eGFR NON BLACK RACES > 60 (>60)
[2020-11-05] MEDS ORDERED: LANOXIN INJ IVP ONE (09:36)
[2020-11-05] MEDS: ROCEPHIN VIAL 1 GRAM 1 G in NS 100 ML IV + SPIKE MINIBAG* 100 ML IV SCH (09:40)
[2020-11-05] MEDS: CARDIZEM CD 180 MG 24-HR PO SCH (09:40)
[2020-11-05] MEDS: TOPROL XL PO SCH (09:40)
--- NOTE | 2020-11-05 10:53 | DR.H&P ---
H&P - History & Physical for Day of: H&P Date: 11/04/20 - Chief Complaint Chief Complaint: ELEVATED HEART RATE, SHORTNESS OF BREATH, ABDOMINAL PAIN - History of Present Illness History of Present Illness: IS A 70 YEAR OLD PATIENT WHO WAS REFERRED TO THE ER BY , [employer] DEVELOPER DUE TO PERSISTENT TACHYCARDIA DESPITE COMPLIANCE WITH HER MEDICATIONS. SHE WAS SEEN IN HIS OFFICE TODAY. HER HEART RATE IN THE OFFICE WAS IN THE 150s. SHE REPORTS SHORTNESS OF BREATH ON EXERTION. SHE ALSO REPORTS LOWER ABDOMINAL PAIN AND BLOOD IN URINE. SHE ADMITS TO MILD CHEST PAIN. CHEST PAIN IS DESCRIBED DULL, INTERMITTENT, AND WAS RATED A 3/10 ON ARRIVAL TO THE ER. HER ABDOMINAL PAIN WAS DESCRIBED CRAMPING, INTERMITTENT, AND WAS RATED A 3/10. ABDOMINAL PAIN IS LOCATED IN THE LOWER QUADRANTS. PATIENT REPORTS THAT HER HEART RATE HAS BEEN ELEVATED FOR THE PAST WEEK. SHE REPORTS TAKING DILTIAZEM HCL 90MG PO TID, DIGOXIN 0.125MG PO BID, AND ELIQUIS 5MG PO BID AT HOME WITHOUT IMPROVEMENT IN SYMPTOMS. ON ARRIVAL TO THE ER, VITALS WERE 98.4-148-19-98%-126/90. LABS WERE OBTAINED. ABNORMAL LAB VALUES INCLUDE THE FOLLOWING: WBC 12.3, BUN 20, GLUCOSE 112, AST 11, ALBUMIN 3.3, DIGOXIN 0.61. CARDIAC ENZYMES WERE WITHIN NORMAL LIMITS. A URINALYSIS WAS OBTAINED AND REVEALED: WBC 10-20, RBC 20-30, LEUKOCYTES 2+, BACTERIA 1+, OCCULT BLOOD 5+, URINE PROTEIN 3+. A URINE CULTURE WAS SET UP. EKG REVEALED: ATRIAL FLUTTER WITH HR 141. CHEST XRAY REVEALED: The trachea is midline. The cardiac silhouette is unremarkable. The lungs are clear without focal infiltrate or effusion. The bony thorax is unremarkable. WE OBTAINED AN ABDOMEN/PELVIS CT WITH CONTRAST DUE TO ABDOMINAL PAIN AND HEMATURIA. IT REVEALED: 1. Mild thickening of the wall of the right renal pelvis could represent the sequela of an ascending urinary tract infection. 2. 6 mm nonobstructing right nephrolith. 3. 1.6 cm left adrenal adenoma; characterized on the comparison CTA exam. IN THE ER, SHE WAS GIVEN A NORMAL SALINE BOLUS, ROCEPHIN 1G IV X 1 DOSE, CARDIZEM 20MG IV X 1 BOLUS, AND WAS STARTED ON A CARDIZEM DRIP. HER HEART RATE DECREASED TO THE 90s. SHE WAS ADMITTED TO THE HOSPITAL FOR FURTHER EVALUATION AND TREATMENT OF ATRIAL FLUTTER, TACHYCARDIA, SHORTNESS OF BREATH, CHEST PAIN, AND ABDOMINAL PAIN. SHE WAS STARTED ON ELIQUIS 5MG PO BID, DIGOXIN 0.125MG PO DAILY, CARDIZEM CD 180MG PO DAILY, METOPROLOL XL 25MG PO DAILY, COLACE 200MG PO Q12H PRN, ROCEPHIN 1G IV DAILY, AND MILK OF MAGNESIA 30ML PO Q12H PRN. WE WILL CONSULT WITH , [employer] DEVELOPER. WE WILL OBTAIN SERIAL CARDIAC ENZYEMS AND EKGS. OTHERWISE, WE PLAN TO FOLLOW UP WITH AM LABS AND CONTINUE TO MONITOR. TIME SPENT ON CLINICAL ASSESSMENT, REVIEWING LABS AND IMAGING, DECISION MAKING, AND DOCUMENTATION GREATER THAN 75 MINUTES. 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, Hysterectomy, Ortho Surgery - Family History Family Medical History: Diabetes Mellitus, Hypertension - Social History Does patient currently use any type of tobacco product: No Have you used tobacco products in the last 12 months: No Type of Tobacco Use: None Does any household member use tobacco: No Alcohol Use: None Drug Use: None - Medications Home Medications: No Known Allergies Allergy (Verified 11/04/20 17:07) CONTINUE taking the following medications ciprofloxacin HCl 500 mg PO BID 11/04/20 [History] digoxin [Digitek] 0.125 mg PO BID 11/04/20 [History] diltiazem HCl 90 mg PO TID 11/04/20 [History] meloxicam 15 mg PO ONCE 11/04/20 [History] - Review of Systems Constitutional: Weakness Eyes: No Symptoms Reported ENT: No Symptoms Reported Respiratory: See HPI, Shortness of Breath, SOB with Excertion Cardiovascular: Chest Pain, See HPI, Palpitations, Light Headedness Gastrointestinal: See HPI, Abdominal Pain Genitourinary: See HPI, Hematuria Musculoskeletal: No Symptoms Reported Skin: No Symptoms Reported Neurological: Weakness - Physical Exam Vital Signs: Temperature 98.6 F Pulse Rate [Apical] 98 Pulse Rate 97 Respiratory Rate 22 Blood Pressure [Left Arm] 126/88 Blood Pressure 141/97 O2 Sat by Pulse Oximetry 94 Oriented: Normal Eyes: Normal Ear: Normal Nose: Normal Throat: Normal Respiratory: Diminished Throughout Cardiovascular: Tachycardia : Normal Auscultation: Bowel Sounds: Normal Palpation: Normal Tenderness: RLQ, LLQ, Mild. negative: Rebound, Guarding, Rigidity Skin: Normal Musculoskeletal: Normal Psychiatric: Normal Mood Description: Calm Affect: Normal Speech Pattern: Clear - Assessment/Plan (1) Atrial flutter Qualifiers: Atrial flutter type: unspecified Qualified Code(s): I48.92 - Unspecified atrial flutter Status: Acute Plan: ADMIT, ELIQUIS 5MG PO BID, DIGOXIN 0.125MG PO DAILY, CARDIZEM CD 180MG PO DAILY, METOPROLOL XL 25MG PO DAILY, COLACE 200MG PO Q12H PRN, ROCEPHIN 1G IV DAILY, AND MILK OF MAGNESIA 30ML PO Q12H PRN, CARDIOLOGY CONSULT (2) Tachycardia Status: Acute (3) Shortness of breath Status: Acute (4) Chest pain Qualifiers: Chest pain type: unspecified Qualified Code(s): R07.9 - Chest pain, unspecified Status: Acute (5) Abdominal pain Qualifiers: Abdominal location: lower abdomen, unspecified Qualified Code(s): R10.30 - Lower abdominal pain, unspecified Status: Acute - Allergies Allergies/Adverse Reactions: Allergies Allergy/AdvReac Type Severity Reaction Status Date / Time No Known Allergies Allergy Verified 11/04/20 17:07
[2020-11-05] MEDS: ELIQUIS PO SCH ×2 (10:56→20:30)
[2020-11-05] MEDS: COLACE CAP 100 MG PO PRN (15:26)
[2020-11-05] MEDS: MILK OF MAGNESIA PO PRN (15:26)
[2020-11-06] MEDS ORDERED: NS 1000 ML 1,000 ML ONE (01:39)
[2020-11-06 05:10] LABS: BASOPHILS # (AUTO) 0.1 X10^3/uL (0.0-0.1); BASOPHILS % (AUTO) 0.8 % (0.2-1.0); EOSINOPHILS # (AUTO) 0.1 x10^3/uL (0.0-0.2); EOSINOPHILS % (AUTO) 0.8 % (0.9-2.9); HEMATOCRIT 40.5 % (36.0-47.0); HEMOGLOBIN 13.6 g/dL (12.0-16.0); LYMPHOCYTES # (AUTO) 1.9 X10^3/uL (1.3-2.9); LYMPHOCYTES % (AUTO) 19.4 % (21.0-51.0); MEAN CORPUSCULAR HEMOGLOBIN 30.2 pg (27.0-34.0); MEAN CORPUSCULAR HGB CONC 33.5 g/dL (33.0-35.0); MEAN CORPUSCULAR VOLUME 90.1 fL (80.0-100.0); MEAN PLATELET VOLUME 8.1 fL (7.4-11.0); MONOCYTES # (AUTO) 0.9 x10^3/uL (0.3-0.8); MONOCYTES % (AUTO) 8.8 % (0.0-13.0); NEUTROPHILS % (AUTO) 70.2 % (42.0-75.0); PLATELET COUNT 307 X10^3/uL (150.0-450.0); RED BLOOD COUNT 4.49 X10^6/uL (3.5-5.4); RED CELL DISTRIBUTION WIDTH 14.7 % (11.6-16.5); WHITE BLOOD COUNT 9.9 X10^3/uL (3.6-10.0)
[2020-11-06 05:17] LABS: ALANINE AMINOTRANSFERASE 26 Units/L (12-78); ALKALINE PHOSPHATASE 60 Units/L (46-116); ASPARTATE AMINO TRANSFERASE 7 Units/L (15-37); BLOOD UREA NITROGEN 16 mg/dL (7-18); CALCIUM 8.3 mg/dL (8.5-10.1); CARBON DIOXIDE 28.3 mmol/L (21-32); CHLORIDE 107 mmol/L (98-107); COR CA(FOR HYPOALB) 9.1 mg/dL (8.5-10.1); CREATININE 0.67 mg/dL (0.55-1.02); DIGOXIN 0.86 ng/mL (0.9-2); SODIUM 143 mmol/L (136-145); TOTAL PROTEIN 6.1 g/dL (6.4-8.2); eGFR NON BLACK RACES > 60 (>60)
[2020-11-06] MEDS ORDERED: ROCEPHIN VIAL 1 GRAM ONE (07:12)
[2020-11-06] MEDS ORDERED: LANOXIN or DIGITEK PO SCH (09:00)
--- NOTE | 2020-11-06 09:25 | PCM.PROG ---
Progress Note - Progress Note for Day of Date of Exam: 11/06/20 - Subjective Subjective: IS BEING TREATED FOR ATRIAL FLUTTER, TACHYCARDIA, AND A URINARY TRACT INFECTION. SHE DENIES ABDOMINAL PAIN OR CHEST PAIN THIS MORNING. SHE CONTINUES TO HAVE SHORTNESS OF BREATH WITH EXERTION. HER HEARTRATE HAS REMAINED IN THE 90s THROUGHOUT THE NIGHT. IT DOES INCREASE TO THE 120s ON EXERTION OR WHEN SHE IS MOVING AROUND MUCH. ON EXAMINATION TODAY, RHYTHM IS IRREGULAR WITH HR IN THE 90s. BILATERAL LUNGS ARE CLEAR TO AUSCULTATION. ABDOMEN IS ROUND, SOFT, AND NON-TENDER WITH NORMAL BOWEL SOUNDS NOTED IN ALL QUADRANTS. NO EDEMA NOTED TO EXTREMITIES. HER VITALS THIS MORNING ARE: 97. 7-95-18-95%-152/79. LABS WERE OBTAINED. ABNORMAL LAB VALUES INCLUDE THE FOLLOWING: GLUCOSE 105, CALCIUM 8.3, AST 7, TOTAL PROTEIN 6.1, ALBUMIN 3.0, DIGOXIN 0.86. URINE CULTURE IS PENDING. SHE IS CURRENTLY RECEIVING ELIQUIS 5MG PO BID, DIGOXIN 0.125MG PO DAILY, CARDIZEM CD 180MG PO DAILY, METOPROLOL XL 25MG PO DAILY, COLACE 200MG PO Q12H PRN, ROCEPHIN 1G IV DAILY, AND MILK OF MAGNESIA 30ML PO Q12H PRN. WE WILL CONTINUE WITH CURRENT PLAN OF CARE TODAY. HAS CONSULTED WITH PATIENT AND PLANS TO TAKE PATIENT DOWN FOR A NUCLEAR STRESS TEST THIS MORNING AND POSSIBLE CARDIOVERSION THIS AFTERNOON. WE ARE IN AGREEMENT WITH PLANS. OTHERWISE, WE PLAN TO FOLLOW UP WITH AM LABS AND CONTINUE TO MONITOR. TIME SPENT ON CLINICAL ASSESSMENT, REVIEWING LABS AND IMAGING, DECISION MAKING, DOCUMENTATION WAS GREATER THAN 45 MINUTES. - Past Medical Family Social History Past Med/Fam/Surg Hx: No changes since H&P Allergies: Allergies No Known Allergies Allergy (Verified 11/04/20 17:07) - Review of Systems ROS: No change since H&P - Vital Signs and I&O's Vital Signs: Temperature 97.7 F Pulse Rate [Apical] 98 Pulse Rate 95 Respiratory Rate 18 Blood Pressure [Left Arm] 126/88 Blood Pressure 152/79 O2 Sat by Pulse Oximetry 95 Intake and Output: Intake & Output 11/03/20 11/04/20 11/05/20 11/06/20 11:59 11:59 11:59 11:59 Intake Total 1165 / 1165 1783 / 1783 Balance 1165 / 1165 1782 - Physical Exam Oriented: Normal Eyes: Normal Ear: Normal Nose: Normal Throat: Normal Respiratory: Generalized, Diminished Cardiovascular: Tachycardia : Normal Auscultation: Bowel Sounds: Normal Palpation: Normal Tenderness: RLQ, LLQ, Mild. negative: Rebound, Guarding, Rigidity Skin: Normal Musculoskeletal: Normal Psychiatric: Normal Mood Description: Calm Affect: Normal Speech Pattern: Clear, Appropriate - Laboratory and Diagnostics Result Diagrams: 11/06/20 04:00 11/06/20 04:00 Labs: 11/04/20 14:45 Urine,Clean Catch Urine Culture - Preliminary Laboratory WBC 9.9 X10^3/uL (3.6-10.0) 11/06/20 04:00 RBC 4.49 X10^6/uL (3.5-5.4) 11/06/20 04:00 Hgb 13.6 g/dL (12.0-16.0) 11/06/20 04:00 Hct 40.5 % (36.0-47.0) 11/06/20 04:00 MCV 90.1 fL (80.0-100.0) 11/06/20 04:00 MCH 30.2 pg (27.0-34.0) 11/06/20 04:00 MCHC 33.5 g/dL (33.0-35.0) 11/06/20 04:00 RDW 14.7 % (11.6-16.5) 11/06/20 04:00 Plt Count 307 X10^3/uL (150.0-450.0) 11/06/20 04:00 MPV 8.1 fL (7.4-11.0) 11/06/20 04:00 Neut % (Auto) 70.2 % (42.0-75.0) 11/06/20 04:00 Lymph % (Auto) 19.4 % (21.0-51.0) L 11/06/20 04:00 [place] % (Auto) 8.8 % (0.0-13.0) 11/06/20 04:00 Eos % (Auto) 0.8 % (0.9-2.9) L 11/06/20 04:00 Baso % (Auto) 0.8 % (0.2-1.0) 11/06/20 04:00 Neut # (Auto) 7.0 x10^3/uL (2.2-4.8) H 11/06/20 04:00 Lymph # (Auto) 1.9 X10^3/uL (1.3-2.9) 11/06/20 04:00 [place] # (Auto) 0.9 x10^3/uL (0.3-0.8) H 11/06/20 04:00 Eos # (Auto) 0.1 x10^3/uL (0.0-0.2) 11/06/20 04:00 Baso # (Auto) 0.1 X10^3/uL (0.0-0.1) 11/06/20 04:00 Absolute Nucleated RBC 0.0 /100WBC 11/06/20 04:00 PT 15.0 SECONDS (11.8-14.3) 11/04/20 14:58 INR Target Range - 11/04/20 14:58 INR 1.24 (0.8-1.3) 11/04/20 14:58 APTT 29.1 SECONDS (22.9-36.5) 11/04/20 14:58 PTT Comment - 11/04/20 14:58 Sodium 143 mmol/L (136-145) 11/06/20 04:00 Corrected Sodium TNP 11/06/20 04:00 Potassium 4.2 mmol/L (3.5-5.1) 11/06/20 04:00 Chloride 107 mmol/L (98-107) 11/06/20 04:00 Carbon Dioxide 28.3 mmol/L (21-32) 11/06/20 04:00 BUN 16 mg/dL (7-18) 11/06/20 04:00 Creatinine 0.67 mg/dL (0.55-1.02) 11/06/20 04:00 Est GFR (MDRD) Af Amer > 60 (>60) 11/06/20 04:00 Est GFR (MDRD) Non-Af > 60 (>60) 11/06/20 04:00 Glucose 105 mg/dL (65-99) H 11/06/20 04:00 POC Glucose (mg/dL) 111 mg/dL (65-99) H 11/04/20 19:40 Calcium 8.3 mg/dL (8.5-10.1) L 11/06/20 04:00 Corrected Calcium 9.1 mg/dL (8.5-10.1) 11/06/20 04:00 Magnesium 1.7 mg/dL (1.7-2.9) 11/04/20 14:58 Total Bilirubin 0.60 mg/dL (0.2-1.0) 11/06/20 04:00 AST 7 Units/L (15-37) L 11/06/20 04:00 ALT 26 Units/L (12-78) 11/06/20 04:00 Alkaline Phosphatase 60 Units/L (46-116) 11/06/20 04:00 Creatine Kinase 19 Units/L (26-192) L 11/05/20 04:10 CK-MB (CK-2) < 1.0 ng/mL (0-4.0) 11/05/20 04:10 CK/CKMB % Calc 5.3 % (<4) 11/05/20 04:10 Troponin I < 0.02 ng/mL (0-1.5) 11/05/20 04:10 Total Protein 6.1 g/dL (6.4-8.2) L 11/06/20 04:00 Albumin 3.0 g/dL (3.4-5.0) L 11/06/20 04:00 Globulin 3.1 g/dL (2.5-4.5) 11/06/20 04:00 Albumin/Globulin Ratio 1.0 Ratio (1.1-2.1) L 11/06/20 04:00 Triglycerides 105 mg/dL (0-150) 11/05/20 04:10 Cholesterol 177 mg/dL (0-200) 11/05/20 04:10 LDL Cholesterol, Calc 102 mg/dL (0-100) H 11/05/20 04:10 HDL Cholesterol 54 mg/dL (40-60) 11/05/20 04:10 Cholesterol/HDL Ratio 3.3 (0.0-5.0) 11/05/20 04:10 Specimen Type Clean catch urine 11/04/20 14:45 Urine Color Brown (YELLOW) 11/04/20 14:45 Urine Appearance Cloudy (CLEAR) 11/04/20 14:45 Urine pH 6.0 (5.0 - 8.0) 11/04/20 14:45 Ur Specific [place] 1.010 (1.000-1.030) 11/04/20 14:45 Urine Protein 3+ (NEGATIVE) 11/04/20 14:45 Urine Glucose (UA) Negative (NEGATIVE) 11/04/20 14:45 Urine Ketones Negative (NEGATIVE) 11/04/20 14:45 Urine Occult Blood 5+ (NEGATIVE) 11/04/20 14:45 Urine Nitrite Negative (NEGATIVE) 11/04/20 14:45 Urine Bilirubin Negative (NEGATIVE) 11/04/20 14:45 Urine Urobilinogen Normal (NORMAL) 11/04/20 14:45 Ur Leukocyte Esterase 2+ (NEGATIVE) 11/04/20 14:45 Urine RBC 20-30 /HPF (0-3) A 11/04/20 14:45 Urine WBC 10-20 /HPF (0-5) A 11/04/20 14:45 Ur Squamous Epith Cells Few /HPF (NEGATIVE) 11/04/20 14:45 Urine Bacteria 1+ /HPF (NEGATIVE) 11/04/20 14:45 Ur Culture Indicated? Yes/culture set up 11/04/20 14:45 Digoxin 0.86 ng/mL (0.9-2) L 11/06/20 04:00 - Plan (1) Atrial flutter Status: Acute Qualifiers: Atrial flutter type: unspecified Qualified Code(s): I48.92 - Unspecified atrial flutter Plan: NUCLEAR STRESS TEST AND CARDIOVERSION TODAY. ELIQUIS 5MG PO BID, DIGOXIN 0.125MG PO DAILY, CARDIZEM CD 180MG PO DAILY, METOPROLOL XL 25MG PO DAILY, COLACE 200MG PO Q12H PRN, ROCEPHIN 1G IV DAILY, AND MILK OF MAGNESIA 30ML PO Q12H PRN, (2) Tachycardia Status: Acute (3) Shortness of breath Status: Acute (4) Chest pain Status: Acute Qualifiers: Chest pain type: unspecified Qualified Code(s): R07.9 - Chest pain, unspecified (5) Abdominal pain Status: Acute Qualifiers: Abdominal location: lower abdomen, unspecified Qualified Code(s): R10.30 - Lower abdominal pain, unspecified
[2020-11-06] MEDS: TOPROL XL PO SCH (10:56)
[2020-11-06] MEDS: CARDIZEM CD 180 MG 24-HR PO SCH (10:56)
[2020-11-06] MEDS: ROCEPHIN VIAL 1 GRAM 1 G in NS 100 ML IV + SPIKE MINIBAG* 100 ML IV SCH (10:56)
[2020-11-06] MEDS: ELIQUIS PO SCH (10:58)
[2020-11-06] MEDS ORDERED: DIPRIVAN VIAL 20 ML ONE ×2 (12:20→13:04)
[2020-11-06] MEDS ORDERED: NS 500 ML IV 500 ML IV ONE (12:57)
[2020-11-06 14:04] VITALS: BP 118/65
[2020-11-06] MEDS ORDERED: LEXISCAN IV ONE (17:10)
== END 2020-11-06 15:00 | disposition home or self-care (01) | DRG 309 ==
LOC: ER 13:48 → ICU 17:10
PROVIDERS: ADMIT Internal Medicine; ATTEND Internal Medicine
DX: I48.91 Unspecified atrial fibrillation; R06.02 Shortness of breath; I10 Essential (primary) hypertension; R10.30 Lower abdominal pain, unspecified; R00.0 Tachycardia, unspecified; E03.8 Other specified hypothyroidism; N39.0 Urinary tract infection, site not specified; Z79.1 Long term (current) use of non-steroidal anti-inflammatories (NSAID); R94.31 Abnormal electrocardiogram [ECG] [EKG]; R07.89 Other chest pain; B96.29 Other Escherichia coli [E. coli] as the cause of diseases classified elsewhere